=== PATIENT | male | born 1985 | race Caucasian/White ===

== ENCOUNTER 2018-03-23 09:42 | Emergency (ER) | payer BC, SELFPAY ==
[2018-03-23] VITALS (37 sets, daily range): BP systolic 136–152; BP diastolic 90–99; PULSE 57–78; RESP 10–23; O2SAT 92–97
--- NOTE | 2018-03-23 10:07 | DI.RAD_ITS ---
SYMPTOM/DIAGNOSIS: CHEST PAIN PORTABLE AP CHEST: 03/23 The heart is not enlarged. The lungs are clear and well expanded. CONCLUSION: No evidence of acute disease.
--- NOTE | 2018-03-23 10:15 | ED.GENADUL_ITS ---
Discharge Plan Disposition Patient Disposition: HOME Condition: Improving Discharge Details Chief Complaint: Chest Pain Clinical Impression: Chest pain Primary Care Provider: Kristi,Local ED Provider: Devin Cohen Discharge Instructions Instructions: Chest Pain (ED) Additional Instructions: You should have a stress test performed as soon as possible and ideally within the next 72 hours. [facility] Please rest over the next few days with no exertion until you are able to have your stress test. Take aspirin 81 mg daily. Please contact your primary care physician to arrange follow-up. Return to the ER for any worsening or new concerning symptoms. Stand Alone Forms: Work Release Discharge Data Discharge Date/Time-TO BE ENTERED AT DEPARTURE: 03/23/18 14:31 Medical Decision Making 10:18 --32-year-old male with history of hypertension here with intermittent central chest pain radiating to his right shoulder with right arm paresthesias since 745 today. ECG reviewed and interpreted by me: Normal sinus rhythm 72 bpm, normal axis, no STEMI, nondiagnostic. Plan to check troponin. Patient has had some shortness of breath with this chest discomfort. He is satting 93-95% room air with no known lung disease. Plan to obtain CT imaging to assess for pulmonary embolism and aortic dissection. -- cxr reviewed and interpreted by radiology: negative for acute disease. 11:25 -- CT chest negative per radiology. Labs reviewed and initial trop neg. Plan for delta trop. --Delta troponin negative and unchanged. Disposition decision was made weighing the risks and benefits of hospitalization versus outpatient treatment, the risk for further decompensation , and the patient's wishes. The patient was stable and requested discharge. Prior to discharge, my usual and customary return precautions were reviewed with the patient- this included follow-up instructions and reason to return to the emergency department if condition worsens, does not improve as expected, or other new concerns arise. HPI General Mode of arrival: ambulatory . Date/Time Provider Initiated Documentation: 03/23/18 10:06 . Limitations to Documentation: no limitations . Information obtained by: patient . HPI Narrative: 32-year-old male with history of hypertension presents with chief complaint of chest pain. Patient notes pain started around 745 this morning. Pain started at rest. Pain localized to central chest and then radiated into right shoulder and arm. Pain felt like a heavy ache. Pain was moderate in intensity, intermittent, waxing and waning. He currently does not have pain. He had some associated shortness of breath as well as right arm tingling. The tingling in his right arm has persisted. Patient has no family history of heart disease. No leg swelling or calf pain. Related Data Allergies Allergy/AdvReac Type Severity Reaction Status Date / Time No Known Allergies Allergy Unverified 03/23/18 10:11 General Stated Complaint: Chest Pain ELPIDIO: 2 Review of Systems Review of Systems All systems reviewed & are unremarkable except as noted in HPI and below PFSH Medical History HTN (hypertension) (Chronic) Social History Smoking/Tobacco Use Status: Never Exam Const General: cooperative and no acute distress HENMT Head: normocephalic and atraumatic Mouth: moist mucous membranes Eyes Conjunctivae: normal conjunctivae Sclera: normal sclerae EOM: EOM intact bilaterally Neck Neck: trachea midline and supple Resp Auscultation: clear to auscultation bilaterally, no rales, no rhonchi and no wheezes Cardio Jugular venous pressure: no JVD Rate: regular rate and not tachycardic Rhythm: regular rhythm GI Palpation: soft, not firm, no guarding, no masses, not rigid and nontender Skin General skin exam: no rashes or lesions noted Neuro General: alert, awake, oriented x3 and tone normal Extrem General: no calf tenderness bilaterally and no edema Psych Appearance: grossly normal Mental Status: mental status grossly normal Speech and Movement: speech and movement normal Course Vital Signs Pulse 73 03/23/18 09:52 Respiratory Rate 16 03/23/18 09:52 Blood Pressure 152/93 H 03/23/18 09:52 Pulse Oximetry 93 L 03/23/18 09:52 Temperature Source Temporal Artery Scan 03/23/18 09:52 Pulse 73 03/23/18 09:52 Respiratory Rate 16 03/23/18 09:52 Blood Pressure 152/93 H 03/23/18 09:52 Blood Pressure Position Supine 03/23/18 09:52 Pulse Oximetry 93 L 03/23/18 09:52 Oxygen Delivery Method Room Air 03/23/18 09:52 Oxygen Flow Rate 0 03/23/18 09:52 Pain Level 7 03/23/18 09:52 Comment 03/23/18 09:52
[2018-03-23 10:18] LABS: Abs Immature Grans 0.01 k/cumm (0.0-0.09); Absolute Basophil Count 0.03 k/cumm (0.0-0.2); Absolute Eosinophil Count 0.08 k/cumm (0.0-0.7); Absolute Lymphocyte Count 1.86 k/cumm (1.2-3.4); Absolute Monocyte Count 0.51 k/cumm (0.11-0.7); Absolute Neutrophil Count 2.96 k/cumm (1.2-6.7); Basophils % 0.6; Eosinophils % 1.5; HGB 15.3 g/dL (13.5-17.5); Immature Grans % 0.2; Lymphocytes % 34.1; Mean Corp. HGB Concentration 34.8 g/dL (32.0-36.0); Mean Corpuscular Hemoglobin 28.9 pg (27.0-33.0); Mean Corpuscular Volume 83.2 fL (80-95); Mean Platelet Volume 10.8 fL (8.0-11.0); Monocytes % 9.4; Neutrophils % 54.2; Platelet Count 225 x1000/uL (130-400); RBC 5.29 m/cumm (4.50-6.00); RBC Distribution Width 12.4 % (11.8-14.1); White Blood Cell Count 5.45 k/cumm (4.4-10.8)
[2018-03-23 10:33] LABS: ALT 55 U/L (12-78); AST 30 U/L (15-37); Albumin 4.1 g/dL (3.4-5.0); Alkaline Phosphatase 67 U/L (46-116); Anion Gap 9.7 mmol/L (3-11); BUN 13 mg/dL (7-18); Bilirubin, Total 0.2 mg/dL (0.2-1.0); CO2 27.3 mmol/L (21.0-32.0); CREATININE 1.14 mg/dL (0.70-1.30); Calcium 9.2 mg/dL (8.5-10.1); Chloride 104 mmol/L (98-107); Glucose 97 mg/dL (70-100); Magnesium 2.2 mg/dL (1.8-2.4); Potassium 3.9 mmol/L (3.5-5.1); Sodium 141 mmol/L (136-145); Total Protein 7.7 g/dL (6.4-8.2)
[2018-03-23 10:43] LABS: Troponin I < 0.02 ng/mL (0.00-0.06)
--- NOTE | 2018-03-23 11:12 | DI.CT_ITS ---
SYMPTOM/DIAGNOSIS: CHEST PAIN, INTERMITTENT , ASSOCIATED SOB CTA CHEST: CT angiography was performed with multi slice acquisition and multi planar and 3D reconstruction. [address] examination of the chest was performed during the intravenous infusion of 80 cc Omnipaque 350. The tracheobronchial tree and esophagus appear intact. The mediastinal vascular structures are normal in appearance. There is no evidence of hilar or mediastinal adenopathy. The pulmonary parenchyma and pleurae appear intact with no evidence of a pulmonary or pleural mass. The chest wall is normal in appearance. CONCLUSION: Normal chest CT.
[2018-03-23] MEDS: Omnipaque 350 MG/ML 100 ML BTL IJ (11:14)
[2018-03-23 13:32] LABS: Troponin I < 0.02 ng/mL (0.00-0.06)
== END 2018-03-23 14:31 | disposition home or self-care (01) ==
PROVIDERS: Emergency Provider Student in an Organized Health Care Education/Training Program
DX: R07.9 Chest pain, unspecified (principal); R20.2 Paresthesia of skin; R06.02 Shortness of breath; I10 Essential (primary) hypertension
CPT/HCPCS: 36415; 71275; 80053; 93005; 99285; 71045; 83735; 84484; 85025; 93010; J3490